=== PATIENT | male | born 1960 | race African-American/Black ===

== ENCOUNTER 2018-03-17 12:56 | Observation (INO) ==
[2018-03-17] MEDS ORDERED: ASPIRIN 325 MG TABLET PO STA (13:24)
[2018-03-17] MEDS ORDERED: ENOXAPARIN 100 MG/ML SYRINGE SUBCUT STA (13:24)
[2018-03-17] MEDS ORDERED: ONDANSETRON 4 MG/2 ML VIAL IV PRN ×2 (13:24→15:50)
[2018-03-17] MEDS ORDERED: NITROGLYCERIN 2% OINT 1 INCH/GM PACK TOP STA (13:24)
[2018-03-17] MEDS ORDERED: MORPHINE 4 MG/1 ML VIAL IV PRN (13:24)
[2018-03-17 14:02] LABS: Basophils % 0.2 % (0.0-0.8); Eosinophils # 0.1 10*3/uL (0.0-0.87); Eosinophils % 1.4 % (0.00-10.9); Hematocrit 42.5 VOL% (42.0-52.0); Hemoglobin 13.1 GM/DL (14.0-18.0); Immature Granulocytes % 0.5 %; Immature Granulocytes Absolute 0.02 #; Lymphocytes # 1.7 10*3/uL (1.4-4.0); Lymphocytes % 39.4 % (21.2-54.2); Mean Corpuscular HGB Conc 30.8 GM/DL (32-36); Mean Corpuscular Hemoglobin 23 PG (27-34); Mean Corpuscular Volume 73.3 FL (87-102); Mean Platelet Volume 10.2 FL (9.6-12.0); Monocytes # 0.3 10*3/uL (0.11-0.8); Monocytes % 8.1 % (1.7-12.7); Neutrophils # 2.1 10*3/uL (1.4-7.4); Neutrophils % 50.4 % (38.7-73.9); Platelet Count 189 T/CUMM (130-400); Red Cell Distribution Width 15.9 % (9.3-17.3); White Blood Count 4.2 T/CUMM (4-12)
[2018-03-17 14:15] LABS: PT Patient Result 10.4 SECS; Partial Thromboplastin Time 26.1 SECS (0-40)
[2018-03-17 14:22] LABS: Alanine Aminotransferase 28 U/L (16-61); Albumin 3.9 G/DL (3.4-5.0); Alkaline Phosphatase 93 U/L (45-117); Aspartate Amino Transferase 25 U/L (0-37); Blood Urea Nitrogen 14 MG/DL (7-18); Calcium 9.2 MG/DL (8.5-10.1); Glucose 96 MG/DL (74-106); Osmolality,Calculated 277.5 MOS/KG (273-304); Potassium 4.2 MMOL/L (3.5-5.1); Sodium 139 MMOL/L (136-145)
[2018-03-17 14:26] LABS: Troponin I 0.404 NG/ML (0.00-0.045)
[2018-03-17] MEDS ORDERED: POTASSIUM CHLORIDE 20 MEQ TABLET PO PRN (15:50)
[2018-03-17] MEDS ORDERED: guaiFENesin/DM ER 600-30 MG TABLET PO PRN (15:50)
[2018-03-17] MEDS ORDERED: BISACODYL 5 MG TABLET PO PRN (15:50)
[2018-03-17] MEDS ORDERED: diphenhydrAMINE CAP 25 MG CAPSULE PO PRN (15:50)
[2018-03-17] MEDS ORDERED: ZALEPLON 5 MG CAPSULE PO PRN (15:50)
[2018-03-17] MEDS ORDERED: ACETAMINOPHEN 325 MG TABLET PO PRN (15:50)
[2018-03-17] MEDS ORDERED: DOCUSATE SODIUM 100 MG CAPSULE PO PRN (15:50)
[2018-03-17] MEDS ORDERED: MAGNESIUM SULF RIDER 4 GM in PREMIX 1 EACH IV PRN (15:50)
[2018-03-17] MEDS ORDERED: MAGNESIUM SULF RIDER 2 GM in PREMIX 1 EACH IV PRN (15:50)
[2018-03-17 15:51] LABS: Apearance,Urine CLEAR (Clear); Bilirubin,Urine Negative (Negative); Blood, Urine Negative (Negative); Glucose,Urine (UA) Negative (Negative); Ketones,Urine Negative (Negative); Nitrite,Urine Negative (Negative); Protein,Urine Negative; RBC,Urine <1 /HPF (0-4); Urine Color Straw (Yellow); Urine Specific Gravity 1.006 (1.001-1.035); Urine Urobilinogen < 2.0 EU/DL (0.2-1.0)
[2018-03-17] MEDS ORDERED: ALUMINUM/MAGNES/SIMETH MAX STR 30 ML UDCUP PO PRN (15:56)
[2018-03-17] MEDS ORDERED: SODIUM CHLORIDE 0.65% NASAL SPRAY 45 ML BOTTLE BOTH NARES PRN (15:57)
[2018-03-17 15:59] LABS: Barbiturates Screen,Urine Negative (Negative); Benzodiazepines Screen,Urine Negative (Negative); Cannabinoid Screen,Urine Negative (Negative); Opiate Screen,Urine Negative (Negative); Phencyclidine Screen,Urine Negative (Negative)
[2018-03-17] MEDS ORDERED: DEXTROSE 50% 25 GM/50 ML VIAL IV PRN (16:14)
[2018-03-17] MEDS ORDERED: GLUCAGON 1 MG VIAL IM PRN (16:14)
[2018-03-17] MEDS: PANTOPRAZOLE 40 MG TABLET PO SCH (19:59)
[2018-03-17] MEDS: INSULIN LISPRO 100 UNIT/ML SUBCUT SCH ×2 (20:00→21:39)
[2018-03-17 20:54] LABS: Troponin I 0.397 NG/ML (0.00-0.045)
[2018-03-17] MEDS: GABAPENTIN 100 MG CAPSULE PO SCH (21:41)
[2018-03-17] MEDS: traMADol 50 MG TABLET PO SCH (21:41)
[2018-03-17 22:02] LABS: Troponin I 0.417 NG/ML (0.00-0.045)
[2018-03-17] MEDS: ACETAMINOPHEN 325 MG TABLET PO SCH (22:52)
[2018-03-17] MEDS ORDERED: SERTRALINE 25 MG TABLET PO SCH (23:00)
[2018-03-17] MEDS: NITROGLYCERIN 2% OINT 1 INCH/GM PACK TOP SCH (23:15)
[2018-03-18 04:30] LABS: Basophils % 0.2 % (0.0-0.8); Eosinophils # 0.1 10*3/uL (0.0-0.87); Eosinophils % 1.4 % (0.00-10.9); Hematocrit 39.2 VOL% (42.0-52.0); Hemoglobin 12.3 GM/DL (14.0-18.0); Immature Granulocytes % 0.3 %; Immature Granulocytes Absolute 0.02 #; Lymphocytes # 2.1 10*3/uL (1.4-4.0); Lymphocytes % 35.7 % (21.2-54.2); Mean Corpuscular HGB Conc 31.4 GM/DL (32-36); Mean Corpuscular Hemoglobin 23 PG (27-34); Mean Corpuscular Volume 72.6 FL (87-102); Mean Platelet Volume 10.4 FL (9.6-12.0); Monocytes # 0.5 10*3/uL (0.11-0.8); Monocytes % 8.8 % (1.7-12.7); Neutrophils # 3.1 10*3/uL (1.4-7.4); Neutrophils % 53.6 % (38.7-73.9); Platelet Count 190 T/CUMM (130-400); Red Cell Distribution Width 15.3 % (9.3-17.3); White Blood Count 5.8 T/CUMM (4-12)
[2018-03-18 04:54] LABS: Calcium 8.8 MG/DL (8.5-10.1); Osmolality,Calculated 278.5 MOS/KG (273-304); Potassium 3.9 MMOL/L (3.5-5.1)
[2018-03-18 04:55] LABS: Risk Ratio 4.28; VLDL CHOLESTEROL 41.8 MG/DL
[2018-03-18] MEDS: NITROGLYCERIN 2% OINT 1 INCH/GM PACK TOP SCH ×2 (05:50→13:27)
[2018-03-18] MEDS ORDERED: ASPIRIN EC 81 MG TABLET PO SCH (09:00)
[2018-03-18] MEDS ORDERED: TAMSULOSIN 0.4 MG CAPSULE PO SCH (09:00)
[2018-03-18] MEDS ORDERED: ROSUVASTATIN 10 MG TABLET PO SCH (09:00)
[2018-03-18] MEDS ORDERED: LISINOPRIL/HCTZ 20-12.5 MG TABLET PO SCH (09:00)
[2018-03-18] MEDS ORDERED: ENOXAPARIN 40 MG/0.4 ML SYRINGE SUBCUT SCH (09:00)
[2018-03-18] MEDS: INSULIN LISPRO 100 UNIT/ML SUBCUT SCH ×2 (09:57→13:26)
[2018-03-18 12:32] VITALS: BP 170/91
[2018-03-18] MEDS: GABAPENTIN 100 MG CAPSULE PO SCH ×3 (13:13→15:53)
[2018-03-18] MEDS: ACETAMINOPHEN 325 MG TABLET PO SCH (13:14)
[2018-03-18] MEDS: PANTOPRAZOLE 40 MG TABLET PO SCH (13:14)
[2018-03-18] MEDS: traMADol 50 MG TABLET PO SCH (13:14)
== END 2018-03-18 15:55 | disposition home or self-care (01) ==
LOC: N.EDINP 12:56 → N.ED 12:56 → N.2W 17:03 → N.TELEN 18:22
PROVIDERS: ADMIT Internal Medicine Cardiovascular Disease; ATTEND Internal Medicine Cardiovascular Disease

== ENCOUNTER 2022-07-17 11:49 | Observation (INO) ==
[2022-07-17] MEDS ORDERED: ASPIRIN 325 MG TABLET PO STA (13:17)
[2022-07-17] MEDS ORDERED: NITROGLYCERIN SL 0.4 MG TABLET SL STA (13:20)
[2022-07-17 13:38] LABS: Eosinophils % 1.1 % (0.00-10.9); Hematocrit 39.7 VOL% (42.0-52.0); Immature Granulocytes % 0.3 %; Immature Granulocytes Absolute 0.01 #; Lymphocytes # 1.5 10*3/uL (1.4-4.0); Mean Corpuscular HGB Conc 30.2 GM/DL (32-36); Mean Corpuscular Volume 72.4 FL (87-102); Mean Platelet Volume 9.8 FL (9.6-12.0); Monocytes # 0.3 10*3/uL (0.11-0.8); Monocytes % 7.8 % (1.7-12.7); Neutrophils % 51.8 % (38.7-73.9); Platelet Count 215 T/CUMM (130-400); Red Blood Count 5.48 MC/CUMM (3.8-5.5); Red Cell Distribution Width 15.5 % (9.3-17.3); White Blood Count 3.7 T/CUMM (4-12)
[2022-07-17 13:45] LABS: INR 0.9; PT Patient Result 10.5 SECS (10.1-12.1); Partial Thromboplastin Time 26.1 SECS (23.7-32.9)
[2022-07-17] MEDS ORDERED: ENOXAPARIN 30 MG/0.3 ML SYRINGE IV STA (13:50)
[2022-07-17] MEDS ORDERED: ENOXAPARIN 100 MG/ML SYRINGE SUBCUT ONE (14:14)
[2022-07-17 14:34] LABS: Albumin 3.8 G/DL (3.4-5.0); Bilirubin,Total 0.5 MG/DL (0.20-1.00); Calcium 9.1 MG/DL (8.5-10.1); Osmolality,Calculated 275.7 MOS/KG (273-304); Potassium 4.1 MMOL/L (3.5-5.1); Total Protein 7.4 G/DL (6.4-8.2)
[2022-07-17] MEDS ORDERED: ENOXAPARIN 100 MG/ML SYRINGE SUBCUT STA (15:03)
[2022-07-17] MEDS ORDERED: ONDANSETRON 4 MG/2 ML VIAL IV PRN (15:32)
[2022-07-17] MEDS ORDERED: ACETAMINOPHEN 325 MG TABLET PO PRN (15:32)
[2022-07-17] MEDS ORDERED: MORPHINE 2 MG/1 ML SYRINGE IV PRN (15:32)
[2022-07-17] MEDS ORDERED: GLUCAGON 1 MG VIAL IM PRN (15:40)
[2022-07-17] MEDS ORDERED: DEXTROSE 10% 250 ML BAG IV PRN (15:40)
[2022-07-17] MEDS: LACTATED RINGERS 1,000 ML IV SCH (18:29)
[2022-07-17] MEDS: INSULIN LISPRO 100 UNIT/ML SUBCUT SCH ×2 (18:29→21:32)
[2022-07-17 20:46] LABS: Barbiturates Screen,Urine Negative (Negative); Benzodiazepines Screen,Urine Negative (Negative); Cannabinoid Screen,Urine Negative (Negative); Opiate Screen,Urine Negative (Negative); Phencyclidine Screen,Urine Negative (Negative)
[2022-07-17] MEDS ORDERED: ATORVASTATIN 80 MG TABLET PO SCH (21:00)
[2022-07-17] MEDS: METOPROLOL TARTRATE 50 MG TABLET PO SCH (21:33)
[2022-07-18] MEDS ORDERED: ENOXAPARIN 120 MG/0.8 ML SYRINGE SUBCUT SCH ×2 (02:00→09:00)
[2022-07-18] MEDS: LACTATED RINGERS 1,000 ML IV SCH (03:29)
[2022-07-18 06:03] LABS: Risk Ratio 2.37; Thyroid Stimulating Hormone 1.83 uIU/ml (0.358-3.74); VLDL Cholesterol 21.8 MG/DL
[2022-07-18] MEDS: INSULIN LISPRO 100 UNIT/ML SUBCUT SCH ×2 (08:05→11:33)
[2022-07-18] MEDS: METOPROLOL TARTRATE 50 MG TABLET PO SCH (08:24)
[2022-07-18 08:31] LABS: Basophils % 0.3 % (0.0-0.8); Eosinophils # 0.1 10*3/uL (0.0-0.87); Hematocrit 38.5 VOL% (42.0-52.0); Hemoglobin 11.6 GM/DL (14.0-18.0); Immature Granulocytes % 0.3 %; Immature Granulocytes Absolute 0.01 #; Lymphocytes # 1.7 10*3/uL (1.4-4.0); Lymphocytes % 47.9 % (21.2-54.2); Mean Corpuscular HGB Conc 30.1 GM/DL (32-36); Mean Corpuscular Volume 73.8 FL (87-102); Mean Platelet Volume 10.6 FL (9.6-12.0); Monocytes # 0.4 10*3/uL (0.11-0.8); Monocytes % 10.3 % (1.7-12.7); Neutrophils % 39.2 % (38.7-73.9); Platelet Count 227 T/CUMM (130-400); Red Blood Count 5.22 MC/CUMM (3.8-5.5); Red Cell Distribution Width 15.8 % (9.3-17.3); White Blood Count 3.5 T/CUMM (4-12)
[2022-07-18 08:54] LABS: Hypochromia 1+; Microcytosis 1+; Platelet Estimate Normal
[2022-07-18] MEDS ORDERED: lisinopriL 20 MG TABLET PO SCH (09:00)
[2022-07-18] MEDS ORDERED: PANTOPRAZOLE 40 MG TABLET PO SCH (09:00)
[2022-07-18] MEDS ORDERED: ASPIRIN EC 81 MG TABLET PO SCH (09:00)
[2022-07-18] MEDS ORDERED: GLUCAGON 1 MG VIAL IM PRN (11:37)
[2022-07-18] MEDS ORDERED: DEXTROSE 50% 25 GM/50 ML VIAL IV PRN (11:37)
[2022-07-18 11:48] VITALS: BP 134/79
[2022-07-18 12:09] LABS: % Iron Saturation 26.3 % (18-50); Ferritin 267.7 ng/mL (26-388)
== END 2022-07-18 12:30 | disposition home or self-care (01) ==
LOC: N.EDINP 11:49 → N.ED 11:49 → SUATTDRO 15:31 → N.2W 16:56
PROVIDERS: ADMIT Emergency Medicine; ATTEND Internal Medicine